=== PATIENT | female | born 1970 | race Asian ===

== ENCOUNTER 2018-08-19 08:09 | Emergency (ER) | payer BC ==
[~2018-08-19] VITALS: Ht 160 cm; Wt 57.2 kg
[2018-08-19 08:26] VITALS: BP_SYST 145
[2018-08-19] MEDS ORDERED: NACL 0.9% 1,000 ML IV ONE (08:45)
[2018-08-19 09:10] LABS: HEMATOCRIT 39.6 % (36-48); HEMOGLOBIN 11.8 g/dL (12.0-16.0); LYMPHOCYTES % (AUTO) 30.3 % (20.5-51.5); MEAN CORPUSCULAR HEMOGLOBIN 21 pg (27-31); MEAN CORPUSCULAR HGB CONC 30 % (32-36); MEAN CORPUSCULAR VOLUME 70 fL (79.0-98.0); MONOCYTES % (AUTO) 7.9 % (1.7-9.3); NEUTROPHILS % (AUTO) 56.1 % (40.0-70.0); PLATELET COUNT (AUTO) 216 K/uL (130-430); RED BLOOD CELL COUNT(AUTO) 5.67 MIL/uL (4.2-6.2); WHITE BLOOD COUNT (AUTO) 6.4 K/uL (4.8-10.8)
[2018-08-19 09:11] LABS: BASOPHILS # (AUTO) 0.1 K/uL (0.0-0.2); BASOPHILS % (AUTO) 0.9 % (0.0-2.0); EOSINOPHILS # (AUTO) 0.3 K/uL (0.0-0.4); EOSINOPHILS % (AUTO) 4.8 % (0.0-4.0); LYMPHOCYTES # (AUTO) 1.9 K/uL (1.0-5.5); MONOCYTES # (AUTO) 0.5 K/uL (0.0-1.0); NEUTROPHILS # (AUTO) 3.6 K/uL (1.8-7.7)
[2018-08-19 09:19] LABS: CALCIUM 9.5 mg/dL (8.4-11.0); CREATININE 0.61 mg/dL (0.55-1.30); POTASSIUM 3.8 mmol/L (3.5-5.1)
[2018-08-19 09:26] LABS: INR 0.9 (0.8-1.2); PROTHROMBIN TIME 9.3 SECS (9.5-12.5)
[2018-08-19 09:27] LABS: ALBUMIN 3.9 g/dL (3.4-4.8); TOTAL BILIRUBIN 0.3 mg/dL (0.0-1.0)
[2018-08-19] MEDS ORDERED: MECLIZINE HCL 25 MG TABLET (ANITVERT) PO ONE (10:00)
[2018-08-19 10:53] VITALS: BP_SYST 140
== END 2018-08-19 10:53 | disposition home or self-care (01) ==
LOC: SED 08:09
DX: R42 Dizziness and giddiness (principal); Z86.2 Personal history of diseases of the blood and blood-forming organs and certain disorders involving the immune mechanism
CPT/HCPCS: 36415; 70450; 80053; 81025; 85025; 85610; 85730; 96360; 99284; J7030; J8597

== ENCOUNTER 2018-10-27 09:34 | Emergency (ER) | payer BC ==
[~2018-10-27] VITALS: Ht 160 cm; Wt 59.0 kg
[2018-10-27 09:37] VITALS: BP_SYST 151
[2018-10-27] MEDS ORDERED: NACL 0.9% 1,000 ML IV ONE ×2 (09:42→10:00)
[2018-10-27] MEDS ORDERED: ONDANSETRON HCL 4 MG/2 ML VIAL IVP ONE (10:15)
[2018-10-27] MEDS ORDERED: DIPHENHYDRAMINE INJ 50 MG/ML VIAL IVP ONE (10:15)
[2018-10-27 10:19] LABS: HEMATOCRIT 36.4 % (36-48); HEMOGLOBIN 11.3 g/dL (12.0-16.0); RED BLOOD CELL COUNT(AUTO) 5.34 MIL/uL (4.2-6.2)
[2018-10-27 10:20] LABS: MEAN CORPUSCULAR HEMOGLOBIN 21 pg (27-31); MEAN CORPUSCULAR HGB CONC 31 % (32-36); MEAN CORPUSCULAR VOLUME 68 fL (79.0-98.0); PLATELET COUNT (AUTO) 221 K/uL (130-430); RED CELL DISTRIBUTION WIDTH 14.9 % (9.0-15.0)
[2018-10-27 10:25] LABS: CALCIUM 8.9 mg/dL (8.4-11.0); CREATININE 0.58 mg/dL (0.55-1.30)
[2018-10-27 10:31] LABS: ALBUMIN 3.7 g/dL (3.4-4.8); TOTAL BILIRUBIN 0.2 mg/dL (0.0-1.0)
[2018-10-27 10:32] LABS: INR 0.9 (0.8-1.2); PROTHROMBIN TIME 9.3 SECS (9.5-12.5)
[2018-10-27 10:44] LABS: BASOPHILS # (AUTO) 0.1 K/uL (0.0-0.2); EOSINOPHILS # (AUTO) 0.4 K/uL (0.0-0.4); LYMPHOCYTES # (AUTO) 2.8 K/uL (1.0-5.5); MONOCYTES # (AUTO) 0.8 K/uL (0.0-1.0); MONOCYTES % (AUTO) 10.4 % (1.7-9.3); NEUTROPHILS # (AUTO) 3.9 K/uL (1.8-7.7)
[2018-10-27 10:45] LABS: NEUTROPHILS % (AUTO) 48.6 % (40.0-70.0)
[2018-10-27 11:11] LABS: BILIRUBIN,URINE NEGATIVE (NEGATIVE); BLOOD, URINE NEGATIVE (NEGATIVE); CLARITY/URINE CLEAR (CLEAR); COLOR,URINE YELLOW (YELLOW); GLUCOSE,URINE NEGATIVE (NEGATIVE); KETONES,URINE NEGATIVE (NEGATIVE); LEUKOCYTE ESTERASE ,URINE NEGATIVE (NEGATIVE); NITRITE, URINE NEGATIVE (NEGATIVE); PH,URINE 5.5 (5.0-8.0); PROTEIN URINE NEGATIVE (NEGATIVE); UROBILINOGEN,URINE 0.2 (0.2-1.0)
[2018-10-27] MEDS ORDERED: IOHEXOL 350 mgI/mL, 150 ML INFUS..BTL IV ONE (12:00)
[2018-10-27] MEDS ORDERED: MECLIZINE HCL 25 MG TABLET (ANITVERT) PO ONE (13:00)
[2018-10-27 13:25] VITALS: BP_SYST 122
== END 2018-10-27 13:25 | disposition home or self-care (01) ==
LOC: SED 09:34
DX: F41.9 Anxiety disorder, unspecified (principal); R42 Dizziness and giddiness; Z86.2 Personal history of diseases of the blood and blood-forming organs and certain disorders involving the immune mechanism
CPT/HCPCS: 36415; 71045; 71275; 80053; 81003; 82150; 82550; 83690; 83880; 84484; 85025; 85379; 85610; 85730; 93005; 96361; 96374; 96375; 99284; J1200; J2405; J7030; J8597; Q9967; 99283

== ENCOUNTER 2022-08-02 18:28 | Emergency (ER) | payer BC, OTHER ==
[~2022-08-02] VITALS: Ht 157.5 cm; Wt 59.0 kg
[2022-08-02 18:34] VITALS: BP_SYST 150
--- NOTE | 2022-08-02 19:59 | NUR ---
Patient to ER bed 01 to gown for evaluation. Side rails up.
[2022-08-02] MEDS ORDERED: ALPRAZolam 0.25 MG TABLET PO ONE (20:15)
[2022-08-02] MEDS ORDERED: ALPR0.25 PO (21:34)
[2022-08-02 21:44] VITALS: BP_SYST 113
== END 2022-08-02 21:42 | disposition home or self-care (01) ==
LOC: SED 18:28
DX: F41.9 Anxiety disorder, unspecified (principal); M25.512 Pain in left shoulder; Z79.899 Other long term (current) drug therapy
CPT/HCPCS: 71045; 73030; 93005; 99284